=== PATIENT | female | born 1935 | race Caucasian/White ===

== ENCOUNTER 2018-07-09 13:25 | Observation (INO) ==
[2018-07-09] MEDS ORDERED: *HR* FentaNYL (PF) 100 MCG/2 ML VIAL IVP ONE (16:10)
[2018-07-09] MEDS ORDERED: 0.9 % Sodium Chloride 250 ML IVC ONE (16:16)
[2018-07-09] MEDS ORDERED: Naloxone 0.4 MG/ML INJ IVP PRN ×2 (17:11→17:13)
[2018-07-09] MEDS ORDERED: Acetaminophen 325 MG TABLET PO PRN (17:13)
[2018-07-09 17:41] LABS: Hematocrit 37.6 % (35.3-44.9); Hemoglobin 12.2 g/dL (11.5-15.4); Mean Corpuscular HGB Conc 32.4 g/dL (31.6-35.5); Mean Corpuscular Hemoglobin 31.9 pg (28.0-33.3); Mean Corpuscular Volume 98.4 fL (83.0-100.0); Mean Platelet Volume 10.4 fL (9.4-12.4); Red Blood Count 3.82 M/mcL (3.82-4.97); Red Cell Distribution Width 12.3 % (11.5-14.5)
[2018-07-09 17:43] LABS: INR 1.6
[2018-07-09 17:57] LABS: BUN/Creatinine Ratio 13 (6-26); Blood Urea Nitrogen 11 mg/dL (8-23); Calcium 9.1 mg/dL (8.6-10.3); Carbon Dioxide 25 mEq/L (23-29); Chloride 107 mEq/L (98-107); Glucose 105 mg/dL (70-105); Osmolality,Calculated 286 (280-300); Potassium 3.8 mEq/L (3.5-5.1); Sodium 138 mEq/L (136-145); eGFR For Non-African Americans > 60 (> 60)
--- NOTE | 2018-07-09 18:05 | Podiatry Consult Note ---
Date of Encounter: 07/09/18 Time of Encounter: 18:05 Assessment and Plan (1) Lisfranc dislocation Current visit: Yes Status: Acute 1. Xrays reviewed, showing evidence of metatarsal base fracture 2-4 of the right foot. There is possible tenting of skin at medial foot at level of Lisfranc joint, which could indicate instability that could cause ulceration. Patient states that she does not want surgical intervention even if indicated. I did explain with the patient that although there is limited concern for compartment syndrome at this time, she is on a blood thinning medication and could be at risk for compartment syndrome in the future that could require emergent fasciotomy. I also explained that if the fracture and dislocation is tenting the skin, it can cause a wound and therefore would need surgical intervention to stabilize the fracture. 2. CT scan ordered right foot. Will review results with the patient to assist with surgical planning, if warranted. 3. Xrays ordered left foot and ankle and right knee. Ortho would need consulted if evidence of knee injury. 4. Continue NWB right lower extremity. Keep posterior splint intact. Keep right lower extremity elevated. Qualifiers: Encounter type: initial encounter Laterality: right Qualified Code(s): S93.324A - Dislocation of tarsometatarsal joint of right foot, initial encounter History of Present Illness Chief complaint: trauma HPI: Ms. Casarez is a 82 year old female admitted as a transfer from an outside hospital for bilateral foot trauma. Patient reports that she was dizzy and fell injuring both feet. X-rays from outside hospital showed evidence of metatarsal base fractures two through 4 with Lisfranc dislocation at the midfoot. She reports severe pain and swelling localized to the right midfoot. She has been nonweightbearing in a posterior splint. She also reports left ankle pain but is unsure if any injury occurred on the left lower extremity. Patient is currently on Eliquis for Afib. She denies numbness or tingling in the toes of the right foot. Past Med Surg Social Fam HX - Past Medical History Medical history: hypertension - Past Surgical History Surgical History: no surgical history - Social History Smoking Status: Never smoker Smokeless Tobacco Status: No Alcohol use: none Medications and Allergies Ofloxacin *EAR* Drops [Floxin] 10 drop RIGHT EAR DAILY 7 Days #1 bottle [Rx] Lisinopril [Zestril] 03/14/18 [History] Apixaban [Eliquis] 5 mg PO BID 07/09/18 [History] Calcitonin,[place],Synthetic [Calcitonin-[place]] 3.7 ml NS DAILY 07/09/18 [ History] Carvedilol 3.125 mg PO BID 07/09/18 [History] 3 Allergy/AdvReac Type Severity Reaction Status Date / Time Amoxicillin [From Amoxil] Allergy Rash Verified 03/28/18 16:00 All Systems Reviewed: The remainder of the systems were reviewed and are negative - Musculoskeletal Additional comments: Bilateral foot and ankle pain. Right knee pain. Physical Exam - Constitutional Vitals: Temp Pulse Resp BP Pulse Ox 97.9 F 102 16 98/57 98 07/09/18 15:04 07/09/18 15:04 07/09/18 15:04 07/09/18 15:04 07/09/18 15:04 Exam: Vascular: DP and PT nonpalpable due to edema of right lower extremity. Pulses palpable on the left lower shoulder. Capillary refill less than 3 seconds all digits to the right foot. Moderate edema right foot. Dermatology: No open wounds or lesions. Ecchymosis noted to the right plantar midfoot. Superficial abrasion left medial ankle. Musculoskeletal: Right midfoot pain with edema. There is evidence of possible tenting at the medial midfoot on the skin, unable to definitively determine if this is osseous or due to the edema. Patient is able to actively move all 5 digits on right foot as well as perform full range of motion of the right ankle. Left ankle pain at medial malleolus and at the navicular tuberosity. No pain along PT tendon left foot. Neuro: Sensation grossly intact to all digits bilateral lower extremity. Results - Labs Result Diagrams: 07/09/18 17:27 Labs: Abnormal lab results PT 18.0 Seconds (9.4-12.1) H 07/09/18 17:27 All other labs normal. Consult Discharge Plan - Plan Referrals: Alfredo Oh MD [Primary Care Provider] -
[2018-07-09 19:40] LABS: Mean Platelet Volume 9.5 fL (9.4-12.4)
[2018-07-09] MEDS: *HR* HYDROcodone/Acet 5/325 mg TABLET PO PRN ×2 (20:01→23:40)
--- NOTE | 2018-07-09 21:00 | Internal Med History&Physical ---
Date of Encounter: 07/09/18 Time of Encounter: 20:25 Internal Medicine - H&P: HPI Chief complaint: s/p fall Admitted From: Hospital to Hospital Transfer Plans for Post Hospital Care: Home History of present illness: Ms. Casarez is an 82 year old female who was transferred here from [facility] for concerns of dislocation of her foot/ankle and possible need for foot and ankle surgery. She has already been seen by podiatry and they have already ordered CT imaging and further workup for possible surgical intervention. She was seen and evaluated in the ER at [place] prior to transfer here for Podiatry services and admission to [facility]. Upon my assessment of the patient, she states this happened last night as she was trying try to close her kitchen door. She was lightheaded and dizzy and almost sustained a syncopal spell. She was able to brace herself, but she did fall and injured her foot. She denies any other trauma or injury. She did not hit her head. She did not lose consciousness. Upon further history, patient has had recent frequent falls, including a compression fracture this summer that led to an F stay for therapy. She has chronic atrial fibrillation and hypertension. She is on anticoagulation with Eliquis. The falls she has had recently have been precipitated by lightheadedness and dizziness and near syncopal spells. She denies any chest pain or palpitations. She denies any orthopnea or paroxysmal nocturnal dyspnea. She denies any episodes of hypoglycemia. She denies any history of diabetes. Past Med Surg Social Fam HX - Past Medical History Attestation: Yes The following information was validated with the patient. Source: patient, other ([facility]) Medical history: atrial fibrillation, hypertension Additional medical history: A-fib Psychiatric history: no psych history - Past Surgical History Additional surgical history: R ankle sx. tonsillectomy - Social History Smoking Status: Never smoker Smokeless Tobacco Status: No Alcohol use: none Drug use: none Current living situation: Home - Independent Activity Level: Independent ambulation Recent Out of Country Travel Within the Last 8 Weeks: No - Family History Mother Living Status: Hx Family Cardiac Disorders: Yes Father Living Status: Hx Family Cardiac Disorders: No Internal Medicine - H&P: Meds Ofloxacin *EAR* Drops [Floxin] 10 drop RIGHT EAR DAILY 7 Days #1 bottle [Rx] Lisinopril [Zestril] 03/14/18 [History] Apixaban [Eliquis] 5 mg PO BID 07/09/18 [History] Calcitonin,[place],Synthetic [Calcitonin-[place]] 3.7 ml NS DAILY 07/09/18 [ History] Carvedilol 3.125 mg PO BID 07/09/18 [History] 3 Allergy/AdvReac Type Severity Reaction Status Date / Time Amoxicillin [From Amoxil] Allergy Rash Verified 03/28/18 16:00 - Constitutional Constitutional: falls, no chills, no fever(s), no night sweats - EENT Eyes: no blurry vision, no change in vision Ears: no ear pain, no tinnitus Nose, mouth and throat: no nasal congestion, no sinus pressure, no sore throat - Cardiovascular Cardiovascular ROS IM: lightheadedness, other (+ near syncope on numerous occasions), no chest pain, no dyspnea, no dyspnea on exertion, no edema, no orthopnea, no paroxysmal nocturnal dyspnea, no syncope - Respiratory Respiratory: no cough, no hemoptysis, no chest congestion, no excessive phlegm production, no change in phlegm color - Gastrointestinal Gastrointestinal: no abdominal pain, no diarrhea, no hematemesis, no hematochezia, no melena, no vomiting - Genitourinary Genitourinary: no dysuria, no flank pain, no hematuria - Musculoskeletal Musculoskeletal ROS IM: arthralgias, back pain, joint swelling (right foot/ankle ) - Integumentary Integumentary IM: no rash, no jaundice - Neurological Neurological ROS: dizziness, frequent falls, no disequilibrium, no focal weakness, no headache(s), no numbness, no paresthesias, no vertigo - Psychiatric Psychiatric: no anxiety, no depression - Endocrine Endocrine IM: no cold intolerance, no heat intolerance, no polydipsia, no polyphagia, no polyuria - Hematologic/Lymphatic Hematologic/Lymphatic: easy bruising - Allergic/Immunologic Allergic/Immunologic: no GI upset with certain foods - Constitutional Vitals: Temp Pulse Resp BP Pulse Ox 98.2 F 91 17 113/56 93 07/09/18 19:42 07/09/18 19:42 07/09/18 19:42 07/09/18 19:42 07/09/18 19:42 General appearance: Present: cooperative, A&O X 3, pleasant, no acute distress, answers questions appropriately Exam: see below - Head Head exam: Present: atraumatic, normal inspection - Eye Eye exam: Present: EOMI, PERRL. Absent: scleral icterus Pupils: Present: normal accommodation - ENT ENT exam: Present: mucous membranes moist, normal exam, normal oropharynx - Neck Neck exam general surgery: Present: full ROM, supple. Absent: tenderness, nuchal rigidity, thyromegaly - Respiratory Respiratory exam: Present: CTAB. Absent: chest wall tenderness, rales, respiratory distress, rhonchi, wheezes - Cardiovascular Cardiovascular exam: Present: distant heart sounds, irregular rhythm, +S1, +S2, systolic murmur. Absent: diastolic murmur Additional comments: borderline bradycardic with HR in 50-60's on auscultation - GI/Abdominal GI/Abdominal exam: Present: normal bowel sounds, soft. Absent: guarding, hepatomegaly, mass, rebound, splenomegaly, tenderness - Extremities Exam Extremities exam: Present: full ROM, normal capillary refill, tenderness (right foot/ankle -- splinted/wrapped per podiatry), warm, radial pulses palpable and symmetrical. Absent: calf tenderness - Neurological Exam Neurological exam: Present: alert, CN II-XII intact, oriented X3, no focal deficits, strengths equal and symetr throughout. Absent: motor sensory deficit - Psychiatric Psychiatric exam: Present: normal affect, normal mood - Skin Skin exam: Present: dry, intact, warm. Absent: rash Internal Med - H&P Results - Labs CBC & Chem 7: 07/09/18 17:27 07/09/18 17:27 Labs: Short CBC 07/09/18 Range/Units 17:27 WBC 10.4 (4.3-11.1) K/mcL Hgb 12.2 (11.5-15.4) g/dL Hct 37.6 (35.3-44.9) % Plt Count TNP [facility] 07/09/18 17:27 Sodium 138 Potassium 3.8 Chloride 107 Carbon Dioxide 25 BUN 11 Creatinine 0.83 Glucose 105 Calcium 9.1 - EKG Data -: EKG Interpreted by Myself - EKG Data Prior EKG available for review: no EKG comments: 07/09/18 21:11 atrial fibrillation - Impressions ITS Impressions Ankle X-Ray 07/09/18 18:01 IMPRESSION: No acute osseous abnormality of the left foot or ankle. D/ / Yahir Jones MD / Yahir Jones MD Interpreting Provider: Yahir Jones MD Foot CT 07/09/18 18:01 IMPRESSION: Acute traumatic fractures involving the 4th metatarsal base and 3rd cuneiform as above. There is disruption of the Lisfranc alignment with mild lateral and dorsal subluxation of 2nd metatarsal base in relation to 2nd cuneiform concerning for injury to the Lisfranc ligament. There may be a tiny avulsion fracture fragment in the region of the ligament. Associated soft tissue swelling/subcutaneous edema to the dorsal foot. D/ / 07/09/2018 19:34:03 [facility] Sawyer [facility] Interpreting Provider: Oscar Sawyer MD Foot X-Ray 07/09/18 18:01 IMPRESSION: No acute osseous abnormality of the left foot or ankle. D/ / Yahir Jones MD / Yahir Jones MD Interpreting Provider: Yahir Jones MD Knee X-Ray 07/09/18 18:05 IMPRESSION: 1. Minimally displaced proximal fibular head fracture with fracture line extending to the proximal tibiofibular articulation. 2. Moderate knee joint effusion. 3. Mild tricompartmental degenerative changes. D/ / Jet Chen MD / Jet Chen MD Interpreting Provider: Jet Chen MD - Assessment and plan (1) Near syncope Current Visit: Yes Status: Acute Assessment and plan: 1. Will place on pvc monitor. 2. Will order ECHO and Carotid Dopplers. 3. Monitor BP and HR; hold meds for parameters given to RN. 4. Will monitor glucose for possible hypoglycemia. 5. May be due to medication effect and/or symptomatic bradycardia from A fib vs meds. (2) Atrial fibrillation Current Visit: Yes Status: Chronic Assessment and plan: 1. Monitor on telemetry. 2. Continue Coreg and Eliquis per home dosing. 3. Hold BB for HR < 70. 4. Consider cardiology consultation if she develops symptomatic bradycardia. Qualifiers: Atrial fibrillation type: chronic Qualified Code(s): I48.2 - Chronic atrial fibrillation (3) Frequent falls Current Visit: Yes Status: Acute Assessment and plan: 1. Will need PT/OT evaluations after cleared by surgery. 2. Likely due to near-syncopal spells. 3. Work-up as above for near syncope. (4) Lisfranc dislocation Current Visit: Yes Status: Acute Assessment and plan: 1. Per Podiatry. Qualifiers: Encounter type: initial encounter Laterality: right Qualified Code(s): S93.324A - Dislocation of tarsometatarsal joint of right foot, initial encounter (5) DVT prophylaxis Current Visit: Yes Status: Acute Assessment and plan: 1. On Eliquis.
[2018-07-09] MEDS: Apixaban 5 MG TABLET PO SCH (21:48)
[2018-07-10 00:59] LABS: Eosinophils % 2.8 %; Hematocrit 32.2 % (35.3-44.9); Hemoglobin 10.6 g/dL (11.5-15.4); Immature Granulocytes % 0.1 % (0-4); Lymphocytes % 25.3 %; Mean Corpuscular HGB Conc 32.9 g/dL (31.6-35.5); Mean Corpuscular Volume 97.3 fL (83.0-100.0); Monocytes % 13.2 %; Red Blood Count 3.31 M/mcL (3.82-4.97); Red Cell Distribution Width 12.4 % (11.5-14.5); Segmented Neutrophils % 57.8 %
[2018-07-10 01:00] LABS: Basophils # 0.1 K/mcL (0.0-0.2); Basophils % 0.8 %; Eosinophils # 0.3 K/mcL (0.0-0.6); Lymphocytes # 2.2 K/mcL (0.6-4.6); Monocytes # 1.2 K/mcL (0.0-1.3); Neutrophils # 5.1 K/mcL (1.6-8.9)
[2018-07-10 01:15] LABS: BUN/Creatinine Ratio 14 (6-26); Blood Urea Nitrogen 12 mg/dL (8-23); Calcium 8.7 mg/dL (8.6-10.3); Carbon Dioxide 23 mEq/L (23-29); Chloride 108 mEq/L (98-107); Glucose 116 mg/dL (70-105); Osmolality,Calculated 283 (280-300); Potassium 3.8 mEq/L (3.5-5.1); Sodium 136 mEq/L (136-145); eGFR For Non-African Americans > 60 (> 60)
[2018-07-10 01:39] LABS: Mean Platelet Volume 9.4 fL (9.4-12.4)
[2018-07-10 08:41] LABS: Bilirubin,Urine Negative (Negative); Blood,Urine Negative (Negative); Clarity,Urine Cloudy (Clear); Color,Urine Yellow (Yellow); Glucose,Urine (UA) Normal (Normal); Ketones,Urine Negative (Negative); Leukocyte Esterase,Urine Small (Negative); Nitrite,Urine Negative (Negative); Protein,Urine Negative (Neg-Trace); Specific Gravity,Urine 1.008 (1.010-1.025); Urobilinogen,Urine Normal (Normal)
[2018-07-10 08:43] LABS: Bacteria,Urine Few per hpf (None-Few); Hyaline Casts,Urine None Seen per lpf (None-Few); Squamous Epithelial Cell,Urine Many per lpf (None-Few); WBC,Urine 15-30 per hpf (0-3)
[2018-07-10] MEDS: Apixaban 5 MG TABLET PO SCH ×2 (08:48→19:45)
[2018-07-10] MEDS: CALCITONIN NS SCH (08:52)
[2018-07-10] MEDS: *HR* HYDROcodone/Acet 5/325 mg TABLET PO PRN ×2 (09:04→19:45)
--- NOTE | 2018-07-10 10:06 | Podiatry Progress Note ---
Date of Encounter: 07/10/18 Time of Encounter: 10:04 - Assessment and Plan (1) Lisfranc dislocation Current Visit: Yes Status: Acute 1. Xrays and CT reviewed, showing evidence of Lisfranc dislocation and fracture of the right foot. There is possible tenting of skin at medial foot at level of Lisfranc joint, which could indicate instability that could cause ulceration, however this has improved as edema has gone down. Patient states that she does not want surgical intervention even if indicated. I did explain with the patient that although there is limited concern for compartment syndrome at this time, she is on a blood thinning medication and could be at risk for compartment syndrome in the future that could require emergent fasciotomy. I also explained that if the fracture and dislocation is tenting the skin, it can cause a wound and therefore would need surgical intervention to stabilize the fracture. 2. Patient should continue NWB in posterior splint or CAM boot. 3. PT/OT consulted for recommendations. Patient will likely need to go to ECF. 4. Patient will follow up with Dr. Ian Quezada at [facility] Podiatry clinic on 07/19/2018. Qualifiers: Encounter type: initial encounter Laterality: right Qualified Code(s): S93.324A - Dislocation of tarsometatarsal joint of right foot, initial encounter Subjective Principal diagnosis: foot fracture Interval history: Patient reports pain and swelling have improved. She is able to move the digits on the right foot and has feeling to touch. Patient is still refusing surgical intervention and is aware that fractures and dislocation may not heal properly. She is also aware that instability can cause tinting of skin at medial foot which can cause ulceration. Ortho consulted for proximal fibular fracture. Objective - Vital Signs Vital Signs: Vital Signs Temp Pulse Resp BP Pulse Ox 07/10/18 07:07 98.0 F 75 16 129/77 94 07/10/18 03:35 98.2 F 70 18 127/72 93 07/09/18 23:29 99.0 F 69 20 121/68 93 07/09/18 19:42 98.2 F 91 17 113/56 93 07/09/18 15:04 97.9 F 102 16 98/57 98 Intake and Output 07/09/18 07/10/18 07/10/18 23:59 07:59 15:59 Intake Total 250 / 250 0 / 0 Output Total 0 / 0 0 / 0 Balance 250 / 250 0 / 0 Intake: Oral 250 / 250 0 / 0 Output: Urine 0 / 0 0 / 0 Other: Weight 107.5 kg 107.68 kg Blood Glucose* 111 Patient Weight 07/10/18 23:59 Weight 107.68 kg - Exam Exam: Vascular: DP and PT nonpalpable due to edema of right lower extremity. Pulses palpable on the left lower shoulder. Capillary refill less than 3 seconds all digits to the right foot. Moderate edema right foot. Dermatology: No open wounds or lesions. Ecchymosis noted to the right plantar midfoot. Superficial abrasion left medial ankle. Musculoskeletal: Right midfoot pain with edema. There is evidence of possible tenting at the medial midfoot on the skin which has improved. Edema improved. Patient is able to actively move all 5 digits on right foot as well as perform full range of motion of the right ankle. Left ankle pain at medial malleolus and at the navicular tuberosity. No pain along PT tendon left foot. Neuro: Sensation grossly intact to all digits bilateral lower extremity. - Lab Result Diagrams: 07/10/18 00:39 07/10/18 00:39 Labs: Abnormal lab results RBC 3.31 M/mcL (3.82-4.97) L 07/10/18 00:39 Hgb 10.6 g/dL (11.5-15.4) L D 07/10/18 00:39 Hct 32.2 % (35.3-44.9) L 07/10/18 00:39 PT 18.0 Seconds (9.4-12.1) H 07/09/18 17:27 Chloride 108 mEq/L (98-107) H 07/10/18 00:39 Glucose 116 mg/dL (70-105) H 07/10/18 00:39 Urine Clarity Cloudy (Clear) A 07/10/18 08:28 Ur Specific [place] 1.008 (1.010-1.025) L 07/10/18 08:28 Ur Leukocyte Esterase Small (Negative) H 07/10/18 08:28 Urine Microscopic RBC 5-15 per hpf (0-3) H 07/10/18 08:28 Urine Microscopic WBC 15-30 per hpf (0-3) H 07/10/18 08:28 Ur Squamous Epith Cells Many per lpf (None-Few) H 07/10/18 08:28 Consult Discharge Plan - Plan Referrals: Alfredo Oh MD [Primary Care Provider] -
--- NOTE | 2018-07-10 10:41 | Internal Med Progress Note ---
Hospitalist Progress Note - Encounter Date of Encounter: 07/10/18 Time of Encounter: 08:30 - Subjective Interval History: awake and resting in bed. no painin foot or knee. denies current presyncope, chest pain, pressure, palpitations. Still feels she would NOT want surgery - Exam Vitals: Temp Pulse Resp BP Pulse Ox 98.0 F 75 16 129/77 94 07/10/18 07:07 07/10/18 07:07 07/10/18 07:07 07/10/18 07:07 07/10/18 07:07 Exam: General: awake, alert, appears stated age HEENT:EOM intact, pupils equal, round, no conjunctival pallor Cardiovascular:regular rate and rhythm, normal S1 & S2, no rubs, murmurs or gallops. no LLE edema, RLE with wrapping in place and cannot assess Lungs:Normal breath sounds, no wheezes, or crackles. Normal respiratory effort on ra Extremities:R foot wrapped and cannot assess, right knee joint tender to palpation, + edema, no erythema or ecchymosis Neurological: AAOx3 Skin:Normal color, no rash, no pallor, no visible ecchymosis - Assessment and Plan (1) Lisfranc dislocation Current Visit: Yes Status: Acute Assessment and Plan: Foot CT with Right Foot Fracture and Lisfrank dislocation CT right foot: Acute traumatic fractures involving the 4th metatarsal base and 3rd cuneiform disruption of the Lisfranc alignment with mild lateral and dorsal subluxation of 2nd metatarsal base in relation to 2nd cuneiform concerning for injury to the Lisfranc ligament. There may be a tiny avulsion fracture fragment in the region of the ligament. -podiatry is following -currently refusing surgery though skin is tented and she is at risk for wound as d/w podiatry -prn pain control -NWB rle -monitor hgb post fracture on AC as she is at risk for bleeding, as well as compartment syndrome--neurovasc checks (2) Near syncope Current Visit: Yes Status: Acute Assessment and Plan: Rule out cardiac etiology, vs med side effect -cont tele -ECHO and Carotid Dopplers pending -hold parameters for BB -cannot check orthostats given bed rest at this time -Will monitor glucose for possible hypoglycemia. -fall precautions (3) Atrial fibrillation Current Visit: Yes Status: Chronic Assessment and Plan: Currently in rate controlled Afib - Continue Coreg and Eliquis per home dosing. -Hold BB for HR < 70. -consider cardiology consultation if she develops symptomatic bradycardia. -cont tele (4) Frequent falls Current Visit: Yes Status: Chronic Assessment and Plan: WAs recently in ECF post fall -currently bed rest -Will need PT/OT evaluations after cleared by surgery. -possibly due to near-syncopal spells with work up above . (5) DVT prophylaxis Current Visit: Yes Status: Chronic Assessment and Plan: On Eliquis. (6) Right fibular fracture Current Visit: Yes Status: Acute Assessment and Plan: Right Knee Xray: Minimally displaced proximal fibular head fracture with fracture line extending to the proximal tibiofibular articulation. Moderate knee joint effusion. -ortho consulted and will fu recs -prn pain control -bedrest as above (7) Acute anemia Current Visit: Yes Status: Acute Assessment and Plan: admitting hgb 12.2 and repeat this morning 10.6 -on AC from home, will need to cont to monitor as she is at risk for bleeding with fracture, will check repeat hgb this afternoon -denies any s/s of bleeding - Time Spent with Patient Total time spent is greater than 50% in coordination of care (as documented) at patient's floor/unit and/or counseling patient: 25 - 35 minutes Plan of Care Discussed with: patient Internal Medicine: Result - Labs CBC & Chem 7: 07/10/18 00:39 07/10/18 00:39 Labs: Short CBC 07/09/18 07/10/18 Range/Units 17:27 00:39 WBC 10.4 8.8 (4.3-11.1) K/mcL Hgb 12.2 10.6 L D (11.5-15.4) g/dL Hct 37.6 32.2 L (35.3-44.9) % Plt Count TNP TNP Neutrophils # 5.1 (1.6-8.9) K/mcL BMP 07/09/18 07/10/18 17:27 00:39 Sodium 138 136 Potassium 3.8 3.8 Chloride 107 108 H Carbon Dioxide 25 23 BUN 11 12 Creatinine 0.83 0.84 Glucose 105 116 H Calcium 9.1 8.7 Urine 07/10/18 Range/Units 08:28 Urine Color Yellow (Yellow) Urine Clarity Cloudy A (Clear) Urine pH 6.0 (5.0-8.0) pH Units Ur Specific [place] 1.008 L (1.010-1.025) Urine Protein Negative (Neg-Trace) mg/dL Urine Glucose (UA) Normal (Normal) mg/dL - ABG Interpretation ABG results: PT/INR, D-dimer PT 18.0 Seconds (9.4-12.1) H 07/09/18 17:27 - Impressions Impressions Ankle X-Ray 07/09/18 18:01 IMPRESSION: No acute osseous abnormality of the left foot or ankle. D/ / Yahir Jones MD / Yahir Jones MD Interpreting Provider: Yahir Jones MD Foot CT 07/09/18 18:01 IMPRESSION: Acute traumatic fractures involving the 4th metatarsal base and 3rd cuneiform as above. There is disruption of the Lisfranc alignment with mild lateral and dorsal subluxation of 2nd metatarsal base in relation to 2nd cuneiform concerning for injury to the Lisfranc ligament. There may be a tiny avulsion fracture fragment in the region of the ligament. Associated soft tissue swelling/subcutaneous edema to the dorsal foot. D/ / 07/09/2018 19:34:03 Oscar Sawyer MD / [facility] Interpreting Provider: Oscar Sawyer MD Foot X-Ray 07/09/18 18:01 IMPRESSION: No acute osseous abnormality of the left foot or ankle. D/ / Yahir Jones MD / Yahir Jones MD Interpreting Provider: Yahir Jones MD Knee X-Ray 07/09/18 18:05 IMPRESSION: 1. Minimally displaced proximal fibular head fracture with fracture line extending to the proximal tibiofibular articulation. 2. Moderate knee joint effusion. 3. Mild tricompartmental degenerative changes. D/ / Jet Chen MD / Jet Chen MD Interpreting Provider: Jet Chen MD Consult Discharge Plan - Plan Referrals: Alfredo Oh MD [Primary Care Provider] - (1) Lisfranc dislocation Qualifiers: Encounter type: initial encounter Laterality: right Qualified Code(s): S93.324A - Dislocation of tarsometatarsal joint of right foot, initial encounter (3) Atrial fibrillation Qualifiers: Atrial fibrillation type: chronic Qualified Code(s): I48.2 - Chronic atrial fibrillation
[2018-07-10 16:42] LABS: Hematocrit 34.4 % (35.3-44.9); Hemoglobin 11.2 g/dL (11.5-15.4)
[2018-07-11 01:41] LABS: Basophils % 0.6 %; Immature Granulocytes % 0.3 % (0-4); Mean Corpuscular Hemoglobin 31.8 pg (28.0-33.3); Red Cell Distribution Width 12.2 % (11.5-14.5)
[2018-07-11 01:43] LABS: Basophils # 0.1 K/mcL (0.0-0.2); Eosinophils # 0.4 K/mcL (0.0-0.6); Hematocrit 34.2 % (35.3-44.9); Hemoglobin 11.1 g/dL (11.5-15.4); Immature Platelets 15.4 % (1.1-6.1); Lymphocytes # 2.4 K/mcL (0.6-4.6); Lymphocytes % 25.7 %; Mean Corpuscular HGB Conc 32.5 g/dL (31.6-35.5); Mean Platelet Volume 11.7 fL (9.4-12.4); Monocytes # 1.1 K/mcL (0.0-1.3); Monocytes % 11.9 %; Red Blood Count 3.49 M/mcL (3.82-4.97); Segmented Neutrophils % 57.5 %
[2018-07-11 01:49] LABS: INR 2.1; Prothrombin Time 23.7 Seconds (9.4-12.1)
[2018-07-11 01:51] LABS: Neutrophils # 5.5 K/mcL (1.6-8.9)
[2018-07-11 01:58] LABS: BUN/Creatinine Ratio 16 (6-26); Blood Urea Nitrogen 16 mg/dL (8-23); Calcium 8.8 mg/dL (8.6-10.3); Carbon Dioxide 22 mEq/L (23-29); Chloride 106 mEq/L (98-107); Glucose 99 mg/dL (70-105); Osmolality,Calculated 281 (280-300); Sodium 135 mEq/L (136-145); eGFR For Non-African Americans 54 (> 60)
[2018-07-11 03:39] LABS: Mean Platelet Volume 9.9 fL (9.4-12.4)
[2018-07-11] MEDS: Apixaban 5 MG TABLET PO SCH ×2 (07:37→21:17)
[2018-07-11] MEDS: CALCITONIN NS SCH (07:37)
--- NOTE | 2018-07-11 08:50 | Internal Med Progress Note ---
Hospitalist Progress Note - Encounter Date of Encounter: 07/11/18 Time of Encounter: 09:00 - Subjective Interval History: awake, pleasant, having pain in right foot, no leg pain. denies fevers, chills, n/v. - Exam Vitals: Temp Pulse Resp BP Pulse Ox 97.6 F 76 18 122/61 91 07/11/18 07:58 07/11/18 07:58 07/11/18 07:58 07/11/18 07:58 07/11/18 07:58 Exam: General: awake, alert, appears stated age HEENT:pupils equal, round, no conjunctival pallor Cardiovascular:regular rate and irreg/irreg rhythm, normal S1 & S2, murmurs no LLE edema, RLE with wrapping/splint in place and cannot assess Lungs:Normal breath sounds, no wheezes, or crackles. Normal respiratory effort on ra Extremities:R foot wrapped and cannot visualize any erythema or ecchymosis Skin:Normal color, no rash, no pallor, no visible ecchymosis - Assessment and Plan (1) Lisfranc dislocation Current Visit: Yes Status: Acute Assessment and Plan: Foot CT with Right Foot Fracture and Lisfrank dislocation CT right foot: Acute traumatic fractures involving the 4th metatarsal base and 3rd cuneiform disruption of the Lisfranc alignment with mild lateral and dorsal subluxation of 2nd metatarsal base in relation to 2nd cuneiform concerning for injury to the Lisfranc ligament. There may be a tiny avulsion fracture fragment in the region of the ligament. -podiatry is following -currently refusing surgery though skin is tented and she is at risk for wound as d/w podiatry -prn pain control -NWB rle -monitor hgb post fracture on AC as she is at risk for bleeding, as well as compartment syndrome--neurovasc checks (2) Near syncope Current Visit: Yes Status: Acute Assessment and Plan: Rule out cardiac etiology, vs med side effect most likely she has generalized weakness with ambultory dysfunction given negative work up -no noted tele events -no s/s of infectious process -ECHO 07/09 EF 55-60%, wall motion c/w BBB, indeterminant diastolic dysfunction, no pulm htn, no sig valvular disease -Caroitd US 07/09 MENDOZA 40-59% stenosis and left normal -hold parameters for BB -cannot check orthostats given bed rest at this time, no anemia on admit - monitoring glucose for possible hypoglycemia- and bs are normal -no metabolic abnormalities in lab work that appear to be contributing -fall precautions (3) Atrial fibrillation Current Visit: Yes Status: Chronic Assessment and Plan: Reminas rate controlled afib - Continue Coreg and Eliquis per home dosing. -Hold BB for HR < 70. -cont tele (4) Frequent falls Current Visit: Yes Status: Chronic Assessment and Plan: WAs recently in ECF post fall -currently bed rest -Will need PT/OT evaluations after cleared by surgery. . (5) DVT prophylaxis Current Visit: Yes Status: Chronic Assessment and Plan: On Eliquis. (6) Right fibular fracture Current Visit: Yes Status: Acute Assessment and Plan: Right Knee Xray: Minimally displaced proximal fibular head fracture with fracture line extending to the proximal tibiofibular articulation. Moderate knee joint effusion. -ortho consulted and will fu recs -prn pain control -bedrest as above (7) Acute anemia Current Visit: Yes Status: Acute Assessment and Plan: admitting hgb 12.2 and dropped to 10.6, now uptrending without intervention -on AC from home, will need to cont to monitor as she is at risk for bleeding with fracture -denies any s/s of bleeding - Time Spent with Patient Total time spent is greater than 50% in coordination of care (as documented) at patient's floor/unit and/or counseling patient: 25 - 35 minutes Plan of Care Discussed with: patient Internal Medicine: Result - Labs CBC & Chem 7: 07/11/18 01:09 07/11/18 01:09 Labs: Short CBC 07/10/18 07/11/18 Range/Units 16:08 01:09 WBC 9.5 (4.3-11.1) K/mcL Hgb 11.2 L 11.1 L (11.5-15.4) g/dL Hct 34.4 L 34.2 L (35.3-44.9) % Plt Count TNP Neutrophils # 5.5 (1.6-8.9) K/mcL BMP 07/11/18 01:09 Sodium 135 L Potassium 4.0 Chloride 106 Carbon Dioxide 22 L BUN 16 Creatinine 0.99 Glucose 99 Calcium 8.8 Urine 07/10/18 Range/Units 08:28 Urine Color Yellow (Yellow) Urine Clarity Cloudy A (Clear) Urine pH 6.0 (5.0-8.0) pH Units Ur Specific [place] 1.008 L (1.010-1.025) Urine Protein Negative (Neg-Trace) mg/dL Urine Glucose (UA) Normal (Normal) mg/dL - ABG Interpretation ABG results: PT/INR, D-dimer PT 23.7 Seconds (9.4-12.1) H 07/11/18 01:09 - Impressions Impressions Echocardiogram 07/09/18 20:49 Impressions: LVEF 55-60%. Normal LV chamber size, wall thickness and function. Atypical septal motion consistent with bundle branch block. Indeterminate diastolic function. Normal right ventricular structure and function. No evidence of pulmonary hypertension. Consult Discharge Plan - Plan Referrals: Alfredo Oh MD [Primary Care Provider] - (1) Lisfranc dislocation Qualifiers: Encounter type: initial encounter Laterality: right Qualified Code(s): S93.324A - Dislocation of tarsometatarsal joint of right foot, initial encounter (3) Atrial fibrillation Qualifiers: Atrial fibrillation type: chronic Qualified Code(s): I48.2 - Chronic atrial fibrillation (6) Right fibular fracture Qualifiers: Encounter type: initial encounter Fibula location: proximal Fracture type: closed Fracture morphology: unspecified fracture morphology Qualified Code(s) : S82.831A - Other fracture of upper and lower end of right fibula, initial encounter for closed fracture
--- NOTE | 2018-07-11 08:51 | Orthopedic Consult Note ---
Date of Encounter: 07/11/18 Time of Encounter: 08:49 Assessment and Plan (1) Right fibular fracture Current Visit: Yes Status: Acute The diagnosis and treatment options were discussed with patient. Recommend nonsurgical management of right proximal fibular fracture. With the nondisplaced nature of the fracture and the fracture location, anticipate this healing well with no intervention. The patient is to be nonweightbearing of the right lower extremity due to the right foot fractures. She will follow-up with Dr. Melgar for the right foot fractures, and can follow up for the fibular head fracture as needed. Qualifiers: Encounter type: initial encounter Fibula location: proximal Fracture type : closed Fracture morphology: unspecified fracture morphology Qualified Code (s): S82.831A - Other fracture of upper and lower end of right fibula, initial encounter for closed fracture History of Present Illness HPI: Ms. Casarez is a 82 year old female admitted following a fall 2 days ago causing her to injure her right foot and knee. She presented to an outside hospital and x-rays showed a loose rolando fracture dislocation of the right foot. She was then transferred for further management of the injury and podiatry was consulted. She also complained of pain at the knee and imaging studies demonstrated a nondisplaced fracture of the right proximal fibula head. She has discussed her right foot injury with Dr. Melgar of podiatry and has refused surgical intervention. She is currently nonweightbearing in a posterior splint. She denies numbness or tingling in the toes of the right foot. Past Med Surg Social Fam HX - Past Medical History Medical history: atrial fibrillation, hypertension Additional medical history: A-fib Psychiatric history: no psych history - Past Surgical History Surgical History: no surgical history Additional surgical history: R ankle sx. tonsillectomy - Social History Smoking Status: Never smoker Smokeless Tobacco Status: No Alcohol use: none Drug use: none - Family History Mother Living Status: Hx Family Cardiac Disorders: Yes Father Living Status: Hx Family Cardiac Disorders: No Medications and Allergies Lisinopril [Zestril] 03/14/18 [History] Apixaban [Eliquis] 5 mg PO BID 07/09/18 [History] Calcitonin,Warren,Synthetic [Calcitonin-Warren] 3.7 ml NS DAILY 07/09/18 [ History] Carvedilol 3.125 mg PO BID 07/09/18 [History] 3 Allergy/AdvReac Type Severity Reaction Status Date / Time Amoxicillin [From Amoxil] Allergy Rash Verified 03/28/18 16:00 All Systems Reviewed: The remainder of the systems were reviewed and are negative except as noted in the HPI Physical Exam - Constitutional Vitals: Temp Pulse Resp BP Pulse Ox 97.6 F 76 18 122/61 91 07/11/18 07:58 07/11/18 07:58 07/11/18 07:58 07/11/18 07:58 07/11/18 07:58 Exam: Consult Exam: Constitutional -Vitals reviewed -The patient is well developed and well nourished. -Mood is pleasant. -The patient is well groomed. Psychiatric -The patient is fully alert and oriented x 3. Respiratory: -Respiratory effort normal Abdomen: -Soft abdomen -Non tender -Non distended: Left upper extremity: -No deformities. The overlying skin is intact. No obvious signs of acute trauma. -No tenderness to palpation throughout. -No significant pain with passive motion of the shoulder, elbow, wrist, and fingers within the limits of the bed. -Able to make an "OK" sign, cross the index and long fingers, and extend the thumb. -Sensation grossly intact to light touch throughout the median, radial, and ulnar distributions. -Radial pulse is present; Fingers have good capillary refill. Right upper extremity: -No deformities. The overlying skin is intact. No obvious signs of acute trauma. -No tenderness to palpation throughout. -No significant pain with passive motion of the shoulder, elbow, wrist, and fingers within the limits of the bed. -Able to make an "OK" sign, cross the index and long fingers, and extend the thumb. -Sensation grossly intact to light touch throughout the median, radial, and ulnar distributions. -Radial pulse is present; Fingers have good capillary refill. Left lower extremity: -No deformities. The overlying skin is intact. No obvious signs of acute trauma. -No tenderness to palpation throughout. -No pain with passive motion of the hip, knee, ankle, and toes within the limits of the bed. -No pain with axial loading of the thigh. -Able to dorsiflex and plantarflex the ankle and toes. -Sensation is grossly intact to light touch throughout the sural, saphenous, superficial peroneal, and deep peroneal distributions. -Toes have good capillary refill. Right lower extremity: -Posterior splint in place. Tender to palpation over the fibular head. -Sensation is grossly intact to light touch over the toes. Able to wiggle toes with minimal pain. -Toes have good capillary refill. Results - Labs Result Diagrams: 07/11/18 01:09 07/11/18 01:09 Labs: Abnormal lab results RBC 3.49 M/mcL (3.82-4.97) L 07/11/18 01:09 Hgb 11.1 g/dL (11.5-15.4) L 07/11/18 01:09 Hct 34.2 % (35.3-44.9) L 07/11/18 01:09 Immature Plt Fraction 15.4 % (1.1-6.1) H 07/11/18 01:09 PT 23.7 Seconds (9.4-12.1) H 07/11/18 01:09 Sodium 135 mEq/L (136-145) L 07/11/18 01:09 Carbon Dioxide 22 mEq/L (23-29) L 07/11/18 01:09 Est GFR (Non-Af Amer) 54 (> 60) L 07/11/18 01:09 POC Glucose 111 mg/dL (70-99) H 07/09/18 22:22 Urine Clarity Cloudy (Clear) A 07/10/18 08:28 Ur Specific [place] 1.008 (1.010-1.025) L 07/10/18 08:28 Ur Leukocyte Esterase Small (Negative) H 07/10/18 08:28 Urine Microscopic RBC 5-15 per hpf (0-3) H 07/10/18 08:28 Urine Microscopic WBC 15-30 per hpf (0-3) H 07/10/18 08:28 Ur Squamous Epith Cells Many per lpf (None-Few) H 07/10/18 08:28 H & H 07/10/18 07/11/18 Range/Units 16:08 01:09 Hgb 11.2 L 11.1 L (11.5-15.4) g/dL Hct 34.4 L 34.2 L (35.3-44.9) % All other labs normal. - Diagnostic results Knee x-ray: report reviewed, image reviewed (Nondisplaced fracture of the right proximal fibula) Ankle/Foot x-ray: report reviewed, image reviewed (Lisfranc fracture dislocation of the right foot.) Consult Discharge Plan - Plan Referrals: Alfredo Oh MD [Primary Care Provider] -
[2018-07-11] MEDS: *HR* HYDROcodone/Acet 5/325 mg TABLET PO PRN ×2 (10:27→16:44)
[2018-07-12] MEDS: *HR* HYDROcodone/Acet 5/325 mg TABLET PO PRN ×2 (01:48→15:16)
[2018-07-12] MEDS: Apixaban 5 MG TABLET PO SCH (07:58)
[2018-07-12] MEDS: CALCITONIN NS SCH (08:05)
--- NOTE | 2018-07-12 13:31 | Internal Med Progress Note ---
Hospitalist Progress Note - Encounter Date of Encounter: 07/12/18 Time of Encounter: 09:40 - Exam Vitals: Temp Pulse Resp BP Pulse Ox 97.8 F 85 18 111/72 95 07/12/18 10:41 07/12/18 10:41 07/12/18 10:41 07/12/18 10:41 07/12/18 10:41 Exam: Constitutional: Alert, in no acute distress, HEENT: Normocephalic, atraumatic, moist mucus membrane Heart: Normal, regular rate and rhythm, no murmurs Lungs: lungs clear and equal bilaterally Abdomen: Soft, non distended, non tender, bowel sounds active Extremities: No edema, no clubbing; Skin: Skin warm and dry, no lesions, no rashes, no jaundice Psych: thought content congruent, appropriate affect Neurological Alert and oriented x 3 - Assessment and Plan (1) Lisfranc dislocation Current Visit: Yes Status: Acute Assessment and Plan: Foot CT with Right Foot Fracture and Lisfrank dislocation CT right foot: Acute traumatic fractures involving the 4th metatarsal base and 3rd cuneiform disruption of the Lisfranc alignment with mild lateral and dorsal subluxation of 2nd metatarsal base in relation to 2nd cuneiform concerning for injury to the Lisfranc ligament. There may be a tiny avulsion fracture fragment in the region of the ligament. Plan: -podiatry is following, appreciate recommendations -currently refusing surgery though skin is tented and she is at risk for wound -prn pain control -hemoglobin 11.1 yesterday and remained since admission, post fracture on AC as she is at risk for bleeding, as well as compartment syndrome--neurovasc checks (2) Near syncope Current Visit: Yes Status: Acute Assessment and Plan: Rule out cardiac etiology, vs med side effect most likely she has generalized weakness with adulatory dysfunction given negative work up -no noted tele events -no s/s of infectious process -ECHO 07/09 EF 55-60%, wall motion c/w BBB, indeterminate diastolic dysfunction, no pulm htn, no sig valvular disease -Caroitd US 07/09 MENDOZA 40-59% stenosis and left normal -hold parameters for BB Plan: -cannot check orthostats given bed rest at this time, no anemia on admit - monitoring glucose for possible hypoglycemia- and bs are normal -no metabolic abnormalities in lab work that appear to be contributing -fall precautions (3) Atrial fibrillation Current Visit: Yes Status: Chronic Assessment and Plan: Remained rate controlled afib Plan: -Continue Coreg and Eliquis per home dosing. -Hold BB for HR < 70. -cont tele (4) Frequent falls Current Visit: Yes Status: Chronic Assessment and Plan: Was recently in ECF post fall -PT evaluated and recommended ECF -[facility] . (5) Right fibular fracture Current Visit: Yes Status: Acute Assessment and Plan: Right Knee Xray: Minimally displaced proximal fibular head fracture with fracture line extending to the proximal tibiofibular articulation. Moderate knee joint effusion. -ortho consulted and will fu recs -prn pain control -bedrest as above -Will follow with Dr. Melgar outpatient (6) Acute anemia Current Visit: Yes Status: Acute Assessment and Plan: Admitting hgb 12.2 on 07/09 and dropped to 10.6, uptrending without intervention and yesterday was 11.1 Plan: -on AC from home, will need to cont to monitor as she is at risk for bleeding with fracture -denies any s/s of bleeding -Denies hematuria, hematachezia or hematemesis (7) Epigastric pain Current Visit: Yes Status: Acute Assessment and Plan: Stated an episode of "chest pain" last night. This morning she stated the pain is resolved. She described as an acute onset of epigastric pain. She did not have disphoresis, radiation or pain or nausea during the episode last night. She also noted she has history of heartburn but does not take any medications at home. Plan: -Consider protonix -Continue to monitor hemoglobin tomorrow -Continue to monitor bowel movements for (8) DVT prophylaxis Current Visit: Yes Status: Chronic Assessment and Plan: On Eliquis for afib - Time Spent with Patient Total time spent is greater than 50% in coordination of care (as documented) at patient's floor/unit and/or counseling patient: 25 - 35 minutes Plan of Care Discussed with: patient Internal Medicine: Result - Labs CBC & Chem 7: 07/11/18 01:09 07/11/18 01:09 Labs: Cardiac Enzymes 07/12/18 07/12/18 07/12/18 Range/Units 00:42 03:19 09:30 Troponin I < 0.03 < 0.03 < 0.03 (< 0.04) ng/mL - ABG Interpretation ABG results: PT/INR, D-dimer PT 23.7 Seconds (9.4-12.1) H 07/11/18 01:09 Consult Discharge Plan - Plan Referrals: Alfredo Oh MD [Primary Care Provider] - (1) Lisfranc dislocation Qualifiers: Encounter type: initial encounter Laterality: right Qualified Code(s): S93.324A - Dislocation of tarsometatarsal joint of right foot, initial encounter (3) Atrial fibrillation Qualifiers: Atrial fibrillation type: chronic Qualified Code(s): I48.2 - Chronic atrial fibrillation (5) Right fibular fracture Qualifiers: Encounter type: initial encounter Fibula location: proximal Fracture type: closed Fracture morphology: unspecified fracture morphology Qualified Code(s) : S82.831A - Other fracture of upper and lower end of right fibula, initial encounter for closed fracture
[2018-07-12 15:09] VITALS: BP 121/62
--- NOTE | 2018-07-12 16:55 | Electrocardiograph Report ---
[address] [place] [address] Test Date: 2018-07-09 Pat Name: Carrie Casarez Department: 114 Room: [facility] Gender: F Senior Java Programmer: : 1935 Requested By: Latrice Vu Order Number: [id number] Reading MD: Pavel Mon Measurements Intervals [place] Rate: 80 P: AL: 0 QRS: -48 QRSD: 97 T: 2 QT: 349 QTc: 385 Interpretive Statements ATRIAL FIBRILLATION MARKED LEFT AXIS DEVIATION LOW QRS VOLTAGE POSSIBLE ANTERIOR MYOCARDIAL INFARCTION, PROBABLY OLD Electronically Signed On 07-12-2018 16:53:27 EDT by Pavel Mon
--- NOTE | 2018-07-12 17:04 | Discharge Summary ---
<Haley Anderson - Last Filed: 07/12/18 17:10> - NOTES TO OUTPATIENT PROVIDER Notes to Outpatient Provider: Ms. Casarez was presented to the ED on 07/09 for right foot and ankle injury. Her xray showed lisfranc dislocation and fracture of the right foot. Podiatry was consulted and recommended surgical intervention due to concern for ulceration but patient refused. Orthopedics were also consulted and recommended nonsurgical management due to nondisplaced in nature. She is advised to continue posterior splint for CAM boot. She is to follow up with Dr. aIn Quezada on 07/19/18, [facility]. She will be discharged with pain medication for 1 day. Date of Encounter: 07/12/18 Time of Encounter: 08:45 - Discharge Diagnosis (1) Lisfranc dislocation Priority: Primary Status: Acute Qualifiers: Encounter type: initial encounter Laterality: right Qualified Code(s): S93.324A - Dislocation of tarsometatarsal joint of right foot, initial encounter (2) Right fibular fracture Priority: Secondary Status: Acute Qualifiers: Encounter type: initial encounter Fibula location: proximal Fracture type : closed Fracture morphology: unspecified fracture morphology Qualified Code (s): S82.831A - Other fracture of upper and lower end of right fibula, initial encounter for closed fracture (3) Near syncope Priority: Secondary Status: Resolved (4) Atrial fibrillation Priority: Secondary Status: Chronic Qualifiers: Atrial fibrillation type: chronic Qualified Code(s): I48.2 - Chronic atrial fibrillation (5) Frequent falls Priority: Secondary Status: Chronic (6) Acute anemia Priority: Secondary Status: Resolved (7) DVT prophylaxis Priority: Secondary Status: Chronic (8) Epigastric pain Priority: Secondary Status: Acute Hospital course: Ms. Casarez is a 82 year old female with past medical history of atrial fibrillation and hypertension. She was transferred from [facility] on 07/09 due to concern for dislocation of her foot and ankle. At presentation she noted that the night prior to presentation she was closing her kitchen door and felt lightheaded and dizzy and tried to brace the fall but in the profess injured her foot. She denied hitting her head or losing consciousness. She is on eliquis at home for atrial fibrillation and hypertension. Due to the near syncopal episode she had a carotid Doppler done which showed 40 to 59% stenosis in the right proximal internal carotid arteries. She denied chest pain or palpitations. Podiatry was consulted. Xray and CT showed lisfranc dislocation and fracture of the right foot with instability and risk for a ulceration. She noted she did not want surgical intervention. Podiatry informed her that without surgical intervention she can sustain a wound. They recommended continuing posterior splint or CAM boot. She is to follow up with Dr. Ian Quezada on 07/19/18, [facility]. Also, orthopedics were consulted and they recommended nonsurgical management as it was non displaced and advised her to not bear weight on the right lower extremity. Discharge discussed with: patient - Time Spent with Patient Total time spent providing and/or coordinating discharge services: Less than 30 minutes - Discharge Medications Prescriptions: HYDROcodone/Acet 5/325 mg [[place] 5-325 mg] 1 tab PO Q6HR PRN 1 Days #4 tablet PRN Reason: Pain Home Medications: Apixaban [Eliquis] 5 mg PO BID 07/09/18 [History] Calcitonin,[place],Synthetic [Calcitonin-[place]] 1 spr NS DAILY 07/09/18 [History ] Carvedilol 3.125 mg PO BID 07/09/18 [History] HYDROcodone/Acet 5/325 mg [[place] 5-325 mg] 1 tab PO Q6HR PRN 1 Days #4 tablet [Rx] Allergies/Adverse Reactions: 3 Allergy/AdvReac Type Severity Reaction Status Date / Time Amoxicillin [From Amoxil] Allergy Rash Verified 03/28/18 16:00 Date of admission: 07/09/18 14:54 Primary care physician: Alfredo Oh MD Consults: 07/09/18 19:44 Consult to Tobacco Packer [CONS] Routine Reason for SW Consult: lives at home alone, frequent falls with fractures. 07/10/18 07:50 Consult to Orthopedic Surgery [CONS] Routine Consulting Provider: Allison Salinas Reason for Consult: fib head fracture right, eval and treatment recs, also foot fx podiatry is following Call Completed: Yes 07/11/18 07:41 Consult to Occupational Therapy [CONS] Routine Comment: Evaluate, develop and implement POC Reason for Consult: Mobility needs, possible referral to nursing facility, NWB right lower extremity for foot trauma. CAM boot or posterior splint right lower extremity. Does patient have active BEDREST order?: No Is patient medically & hemodynamically stable?: Yes Patient assessed for mobility or mobilized this visit?: No Consult to Physical Therapy [CONS] Routine Comment: Evaluate, develop and implement POC Reason for Consult: Mobility needs, NWB right lower extremity for foot trauma. CAM boot or posterior splint right lower extremity. Does patient have active BEDREST order?: Yes Is patient medically & hemodynamically stable?: Yes Patient assessed for mobility or mobilized this visit?: No Discharging clinician: Haley Anderson Anticipated date of discharge: 07/12/18 - Constitutional Vitals: Temp Pulse Resp BP Pulse Ox 98.0 F 76 16 121/62 95 07/12/18 15:08 07/12/18 15:08 07/12/18 15:08 07/12/18 15:08 07/12/18 15:08 General appearance: Present: cooperative, A&O X 3, pleasant, no acute distress, answers questions appropriately Exam: awake and alert - Head Head exam: Present: atraumatic, normocephalic - Eye Eye exam: Present: normal appearance, sclera anicteric. Absent: conjunctival injection - ENT ENT exam: Present: mucous membranes dry, mucous membranes moist - Neck Neck exam general surgery: Present: full ROM. Absent: tenderness - Respiratory Respiratory exam: Present: CTAB. Absent: chest wall tenderness, rales, stridor , wheezes - Cardiovascular Cardiovascular exam: Present: RRR, +S1. Absent: tachycardia - GI/Abdominal GI/Abdominal exam: Present: normal bowel sounds, soft. Absent: firm, rigid - Extremities Exam Extremities exam: Present: warm. Absent: full ROM (right lower leg in splint), pedal edema, tenderness - Psychiatric Psychiatric exam: Present: normal affect, normal mood - Skin Skin exam: Present: dry, intact, warm. Absent: rash - Patient Status Disposition: Transfer SNF Functional capacity at discharge: bed bound (should not bear weight on right leg ) Overall status at discharge: patient is not back to baseline - Discharge Instructions Follow Up With: Ian Quezada DPM [Partnered Physician] - ([facility] staff to verify appt date/time on 07/13/18 and call ECF with date and time.) - Diet and Activity Activity: as per physical therapy Diet: advance to your usual diet <Allison Salinas - Last Filed: 07/12/18 18:34> Date of Encounter: 07/12/18 - Discharge Diagnosis (1) Lisfranc dislocation Status: Acute Qualifiers: Encounter type: initial encounter Laterality: right Qualified Code(s): S93.324A - Dislocation of tarsometatarsal joint of right foot, initial encounter (2) Near syncope Status: Resolved (3) Atrial fibrillation Status: Chronic Qualifiers: Atrial fibrillation type: chronic Qualified Code(s): I48.2 - Chronic atrial fibrillation (4) Frequent falls Status: Chronic (5) DVT prophylaxis Status: Chronic (6) Right fibular fracture Status: Acute Qualifiers: Encounter type: initial encounter Fibula location: proximal Fracture type : closed Fracture morphology: unspecified fracture morphology Qualified Code (s): S82.831A - Other fracture of upper and lower end of right fibula, initial encounter for closed fracture (7) Acute anemia Status: Resolved (8) Epigastric pain Status: Acute Hospital course: Ms. Casarez is a 82 year old female - Time Spent with Patient Total time spent providing and/or coordinating discharge services: Date of admission: 07/09/18 14:54 Primary care physician: Alfredo Oh MD Consults: 07/09/18 19:44 Consult to Tobacco Packer [CONS] Routine Reason for SW Consult: lives at home alone, frequent falls with fractures. 07/10/18 07:50 Consult to Orthopedic Surgery [CONS] Routine Consulting Provider: Allison Salinas Reason for Consult: fib head fracture right, eval and treatment recs, also foot fx podiatry is following Call Completed: Yes 07/11/18 07:41 Consult to Occupational Therapy [CONS] Routine Comment: Evaluate, develop and implement POC Reason for Consult: Mobility needs, possible referral to nursing facility, NWB right lower extremity for foot trauma. CAM boot or posterior splint right lower extremity. Does patient have active BEDREST order?: No Is patient medically & hemodynamically stable?: Yes Patient assessed for mobility or mobilized this visit?: No Consult to Physical Therapy [CONS] Routine Comment: Evaluate, develop and implement POC Reason for Consult: Mobility needs, NWB right lower extremity for foot trauma. CAM boot or posterior splint right lower extremity. Does patient have active BEDREST order?: Yes Is patient medically & hemodynamically stable?: Yes Patient assessed for mobility or mobilized this visit?: No - Constitutional Vitals: Temp Pulse Resp BP Pulse Ox 98.0 F 76 16 121/62 95 07/12/18 15:08 07/12/18 15:08 07/12/18 15:08 07/12/18 15:08 07/12/18 15:08 - Attending Attestation I examined this patient and my medical decision-making was reviewed with the Resident Physician Dr Anderson. I agree with the documented findings, disposition and treatment plan as described except to the extent set forth below. Pt admitted after fall and found to have foot fracture with lisfranc dislocation , proximal non displaced fibular fracture. Ortho and podiatry followed. No ortho intervention required, Podiatry rec for surgery and she declined preferring watchful waiting with outpt follow up. Correction to resident documentation, she is non weight bearing as tolerated and podiatry and ortho rec for pt/ot with pt dispo to ecf. Given her recurrent falls syncope work up was obtained and negative for any findings including tele monitoring, trop trending, ekgs, echo and caroitd us. awake, pleasant, mild right foot pain, no knee pain. RN noted episode of chest pain last night. Pt reports shewas asleep, woke up feeling like she had to burp had transient low right sternal border discomfort that quickly resolved adn she fell back asleep. No tele changes, no ekg changes and trop trend normal. She denies any further epsiodes, no palpiations, presyncope or chest pain. eager to dc to rehab gen- alert, awake,appears stated age cv- reg rate and irreg/irreg rhythm, normal s1,s2, no murmurs appreciated, no pitting le edema lungs- ctabl, no wheezing, rhonchi or crackles msk- r foot splinted , right knee with improved edema, no warmth, ecchymosis or erythema neuro- AAOx3, sensation to bl le ext intact and equal Lisfranc Dislocation- fu with podiatry at scheduled outpt appt R fibular head fx, - no surg intervention required -both services recs for pt/ot -ecf discharge Multiple falls, work up for possible presyncope negative- ecf for pt/ot chronic afib, rmains rate controlled afib and home meds cont throughout admit Acute anemia most likely 2/2 acute fracture, uptrended without intervention
--- NOTE | 2018-07-12 17:52 | Physician Discharge Referral ---
<Haley Anderson - Last Filed: 07/12/18 18:01> [facility] Referral Info Transfer To: ecf Provider in Charge after Transfer: PCP Institutional Level of Care: Skilled - Diagnosis (1) Lisfranc dislocation Priority: Primary Status: Acute (2) Right fibular fracture Priority: Secondary Status: Acute (3) Near syncope Priority: Secondary Status: Resolved (4) Atrial fibrillation Priority: Secondary Status: Chronic (5) Frequent falls Priority: Secondary Status: Chronic (6) Acute anemia Priority: Secondary Status: Resolved (7) Epigastric pain Priority: Secondary Status: Acute (8) DVT prophylaxis Priority: Secondary Status: Chronic Prognosis: Fair Aware of Diagnosis: Patient Aware of Prognosis: Patient - Transfer Medications Prescriptions: HYDROcodone/Acet 5/325 mg [[place] 5-325 mg] 1 tab PO Q6HR PRN 1 Days #4 tablet PRN Reason: Pain Home Medications: Apixaban [Eliquis] 5 mg PO BID 07/09/18 [History] Calcitonin,[place],Synthetic [Calcitonin-[place]] 1 spr NS DAILY 07/09/18 [History ] Carvedilol 3.125 mg PO BID 07/09/18 [History] HYDROcodone/Acet 5/325 mg [[place] 5-325 mg] 1 tab PO Q6HR PRN 1 Days #4 tablet [Rx] Allergies/Adverse Reactions: 3 Allergy/AdvReac Type Severity Reaction Status Date / Time Amoxicillin [From Amoxil] Allergy Rash Verified 03/28/18 16:00 - Respiratory Orders Smoking Cessation: Smoking cessation has been advised. For more information, call the [place] Tobacco Quit Line at 5-480-JYRG-NOW. - Advance Directives Code Status: Full Code - Mobility Orders Bedrest - Rehabiliation Orders Rehab Potential: Fair Rehab Orders: Evaluation for Physical Therapy, Evaluation for Occupational Therapy - Treatments List/Other: Check right foot dressing - Diet Orders Regular CERTIFICATION: I certify that the transfer of the above named patient to an Extended Care Facility is necessary for the continuing treatment of the diagnosis listed. The above information is true and accurate reflection of patient's current condition. Confidential - Redisclosure prohibited without a patient's written consent. <Allison Salinas - Last Filed: 07/12/18 18:25> - Diagnosis (1) Lisfranc dislocation Status: Acute (2) Near syncope Status: Resolved (3) Atrial fibrillation Status: Chronic (4) Frequent falls Status: Chronic (5) DVT prophylaxis Status: Chronic (6) Right fibular fracture Status: Acute (7) Acute anemia Status: Resolved - Respiratory Orders Smoking Cessation: Smoking cessation has been advised. For more information, call the [place] Tobacco Quit Line at 5-256-BZNHNOW. CERTIFICATION: I certify that the transfer of the above named patient to an Extended Care Facility is necessary for the continuing treatment of the diagnosis listed. The above information is true and accurate reflection of patient's current condition. Confidential - Redisclosure prohibited without a patient's written consent.
--- NOTE | 2018-07-13 18:27 | Electrocardiograph Report ---
[place] [id number] Test Date: 2018-07-11 Pat Name: Carrie Casarez Department: 114 Room: [facility] Gender: F Endocrinology Nurse: : [id number] Requested By: Allison Salinas Order Number: [id number] Reading MD: Pavel Mon Measurements Intervals [place] Rate: 75 P: MO: 0 QRS: -39 QRSD: 101 T: 1 QT: 364 QTc: 393 Interpretive Statements ATRIAL FIBRILLATION LEFT AXIS DEVIATION Electronically Signed On 07-13-2018 18:26:06 EDT by Pavel Mon
== END 2018-07-12 18:30 ==
LOC: 3NENU → SUATTDRO 17:47
PROVIDERS: ADMIT Internal Medicine; ATTEND Internal Medicine